=== PATIENT | female | born 1965 | race Caucasian/White ===

== ENCOUNTER 2017-03-15 14:10 | Emergency (ER) | payer SELFPAY ==
[~2017-03-15] VITALS: Ht 157.4 cm; Wt 69.9 kg
[~2017-03-15 14:10] MED LIST: ANAPROX DS550 MG PO; ATARAX10 MG PO; DOXYCYCLINE100 M3 PO; FLOVENT 110 M110 MCG INH; LEVAQUIN500 M1 PO; LOVASTATIN10 MG PO; PREDNISONE20 MG PO; PROAIR HFA0.09 MG/AC INH; ROBAXIN750 MG PO
[2017-03-15 14:19] VITALS: BP 168/70
[2017-03-15] MEDS ORDERED: DELTASONE20 M1 PO (16:40)
== END 2017-03-15 16:45 | disposition home or self-care (01) ==
LOC: ED 14:10
DX: M54.12 Radiculopathy, cervical region (principal); Z79.899 Other long term (current) drug therapy

== ENCOUNTER → 2017-12-17 | Outpatient (CLI) | payer MEDICARE ==
[~2017-12-17] MED LIST changes: +DELTASONE20 M1 PO
== END | disposition home or self-care (01) ==
LOC: MAMMO 11-18 10:00
DX: Z12.31 Encounter for screening mammogram for malignant neoplasm of breast (principal)

== ENCOUNTER → 2020-08-13 | Outpatient (CLI) | payer OTHER | END | disposition home or self-care (01) | LOC: MAMMO 08-02 14:00 | PROVIDERS: ATTEND Family Medicine | DX: Z12.31 Encounter for screening mammogram for malignant neoplasm of breast (principal) ==

== ENCOUNTER 2021-04-03 00:48 | Inpatient (IN) | payer OTHER ==
[~2021-04-03] VITALS: Ht 157 cm; Wt 73.0 kg
[2021-04-03 01:23] VITALS: BP 122/63
[2021-04-03 01:38] LABS: HEMATOCRIT 41.3 % (37.0-47.0); MEAN CELL VOLUME 87.3 fl (81.0-99.0); MEAN CORPUSCULAR HGB 28.5 pg (27.0-31.0); MEAN CORPUSCULAR HGB CONC 32.7 g/dl (33.0-37.0); MEAN PLATELET VOLUME 9.7 fl (9.6-12.3); PLATELET COUNT AUTOMATED 112 10*3/uL (130-400); RED BLOOD COUNT 4.73 10*6/uL (4.10-5.10); RED CELL DISTRI WIDTH 13.9 % (0-14.5); WHITE BLOOD COUNT 15.9 10*3/uL (4.8-10.8)
[2021-04-03 01:52] LABS: ALBUMIN 3.1 gm/dl (3.1-4.5); ALKALINE PHOSPHATASE 82 U/L (45-117); BUN 14 mg/dl (7-24); CHLORIDE 104 mmol/L (98-107); CREATININE 0.66 mg/dL (0.55-1.02); POTASSIUM 3.6 mmol/L (3.5-5.1); SGOT/AST 20 IU/L (3-35); SGPT/ALT 30 U/L (12-78); SODIUM 133 mmol/L (136-145); TOTAL PROTEIN 6.6 gm/dL (6.4-8.2)
[2021-04-03 01:55] LABS: PLATELET SUFFICIENCY LOW (NORMAL); TOTAL CELLS COUNTED 100 #CELLS
[2021-04-03 02:13] LABS: BILIRUBIN Negative (Negative); BLOOD 3+ (Negative); CLARITY Clear (Clear); COLOR Yellow (Yellow); GLUCOSE Negative (Negative); KETONE 2+ (Negative); LEUKO ESTERASE Negative (Negative); NITRITE Negative (Negative); PH 5.5 (4.5-8.0)
[2021-04-03 02:25] LABS: EPITHELIAL CELLS 16-20; RBC 21-30 rbc/hpf (0-2)
[2021-04-03 04:06] VITALS: BP 124/78
[2021-04-03 05:47] VITALS: BP 128/72
[2021-04-03] MEDS ORDERED: ROSUVASTATIN CA20 MG PO (05:50)
[2021-04-03] MEDS ORDERED: BUDESONIDE-FO10.2 GM INH ×2 (05:52→16:25)
[2021-04-03 06:31] VITALS: BP 107/62
[2021-04-03 15:41] VITALS: BP 125/74
[2021-04-03] MEDS ORDERED: CYCLOBENZAPRINE10 MG PO (16:22)
[2021-04-03] MEDS ORDERED: MELOXICAM7.5 MG PO (16:22)
[2021-04-03] MEDS ORDERED: OXYCODONE HCL5 MG PO (16:23)
[2021-04-03 20:00] VITALS: BP 133/80
[2021-04-04] VITALS: BP 116/73
[2021-04-04 07:00] LABS: HEMATOCRIT 32.9 % (37.0-47.0); MEAN CELL VOLUME 87.5 fl (81.0-99.0); MEAN CORPUSCULAR HGB 28.7 pg (27.0-31.0); MEAN CORPUSCULAR HGB CONC 32.8 g/dl (33.0-37.0); MEAN PLATELET VOLUME 11.3 fl (9.6-12.3); PLATELET COUNT AUTOMATED 120 10*3/uL (130-400); RED BLOOD COUNT 3.76 10*6/uL (4.10-5.10); RED CELL DISTRI WIDTH 14.2 % (0-14.5); WHITE BLOOD COUNT 20.1 10*3/uL (4.8-10.8)
[2021-04-04 07:15] LABS: ALBUMIN 2.5 gm/dl (3.1-4.5); ALKALINE PHOSPHATASE 80 U/L (45-117); BUN 14 mg/dl (7-24); CHLORIDE 115 mmol/L (98-107); CREATININE 0.57 mg/dL (0.55-1.02); POTASSIUM 3.6 mmol/L (3.5-5.1); SGOT/AST 17 IU/L (3-35); SGPT/ALT 23 U/L (12-78); SODIUM 143 mmol/L (136-145); TOTAL PROTEIN 6.6 gm/dL (6.4-8.2)
[2021-04-04 07:52] LABS: PLATELET SUFFICIENCY NORMAL (NORMAL); TOTAL CELLS COUNTED 100 #CELLS
[2021-04-04 08:00] VITALS: BP 125/71
[2021-04-04 12:00] VITALS: BP 96/59
[2021-04-04] MEDS ORDERED: DECADRON6 M1 PO (12:25)
[2021-04-04] MEDS ORDERED: ZITHROMAX250 MG PO (12:25)
== END 2021-04-04 14:13 | disposition home or self-care (01) | DRG 871 ==
LOC: ED 00:48 → EDHOLD 05:45 → 4E 05:45
PROVIDERS: Emergency Medicine; Internal Medicine; ADMIT Internal Medicine; ATTEND Internal Medicine
DX: A41.89 Other specified sepsis (principal); U07.1 COVID-19; J12.82 Pneumonia due to coronavirus disease 2019; E87.1 Hypo-osmolality and hyponatremia; E86.0 Dehydration; E78.2 Mixed hyperlipidemia; D75.839 Thrombocytosis, unspecified; R73.9 Hyperglycemia, unspecified; G89.29 Other chronic pain; D72.829 Elevated white blood cell count, unspecified; Z87.891 Personal history of nicotine dependence

== ENCOUNTER → 2021-06-06 | Outpatient (CLI) | payer MEDICARE ==
[~2021-06-06] MED LIST changes: +BUDESONIDE-FO10.2 GM INH; +CYCLOBENZAPRINE10 MG PO; +DECADRON6 M1 PO; +MELOXICAM7.5 MG PO; +OXYCODONE HCL5 MG PO; +ROSUVASTATIN CA20 MG PO; +ZITHROMAX250 MG PO
== END | disposition home or self-care (01) ==
LOC: CT 10:56
PROVIDERS: ATTEND Internal Medicine Critical Care Medicine
DX: R91.1 Solitary pulmonary nodule (principal)

== ENCOUNTER → 2021-09-26 | Outpatient (CLI) | payer MEDICARE | END | disposition home or self-care (01) | LOC: CT 11:00 | PROVIDERS: ATTEND Internal Medicine Critical Care Medicine | DX: J45.40 Moderate persistent asthma, uncomplicated (principal); R91.1 Solitary pulmonary nodule; J30.89 Other allergic rhinitis; Z68.30 Body mass index [BMI] 30.0-30.9, adult; Z86.16 Personal history of COVID-19; Z87.891 Personal history of nicotine dependence ==

== ENCOUNTER 2022-07-09 16:24 | Emergency (ER) | payer MEDICARE ==
[~2022-07-09] VITALS: Ht 160 cm; Wt 72.6 kg
[2022-07-09 16:30] VITALS: BP 152/86
[2022-07-10] MEDS ORDERED: CEPHALEXIN500 M1 PO (10:13)
== END 2022-07-09 21:12 | disposition home or self-care (01) ==
LOC: ED 16:24
DX: S91.331A Puncture wound without foreign body, right foot, initial encounter (principal); Z91.041 Radiographic dye allergy status; Z88.8 Allergy status to other drugs, medicaments and biological substances; Z79.899 Other long term (current) drug therapy; Z87.891 Personal history of nicotine dependence; Z90.89 Acquired absence of other organs; Z98.890 Other specified postprocedural states; W45.8XXA Other foreign body or object entering through skin, initial encounter; Y93.89 Activity, other specified; Y92.89 Other specified places as the place of occurrence of the external cause; Y99.8 Other external cause status

== ENCOUNTER → 2022-08-14 | Outpatient (CLI) | payer MEDICARE ==
[~2022-08-14] MED LIST changes: +CEPHALEXIN500 M1 PO
== END | disposition home or self-care (01) ==
LOC: MAMMO 14:00 → US 15:00
PROVIDERS: ATTEND Clinical Nurse Specialist Adult Health
DX: Z12.31 Encounter for screening mammogram for malignant neoplasm of breast (principal); R59.0 Localized enlarged lymph nodes; N64.89 Other specified disorders of breast